=== PATIENT | male | born 1995 | race African-American/Black ===

== ENCOUNTER 2016-07-11 14:44 | Inpatient (IN) | payer OTHER ==
--- NOTE | ~2016-07-11 | HP ---
Unit #: [id number] #: [id number] Patient: LORI GLEASON [id number] [place] [address] [id number] I MR#: [id number] NAME: LORI GLEASON ROOM: 30 Age: 21 Sex: M Admission Date: 07/11/2016 : 1995 Attending Physician: Zain Iniguez M.D. Admitting Physician: Zain Iniguez M.D. Primary Care Physician: Primary Care Physician No HISTORY AND PHYSICAL HISTORY OF PRESENT ILLNESS Lori is a 21 year old, admitted to [address] [place] [address] with psychotic behavior. He reports auditory hallucinations. PAST MEDICAL HISTORY Nothing significant. PAST SURGICAL HISTORY Nothing reported. ALLERGIES No known drug allergies. SOCIAL HISTORY He smokes one half pack per day. He denies alcohol and illicit drug use. FAMILY HISTORY Medically noncontributory. REVIEW OF SYSTEMS He does not answer questions appropriately. There are no reports of nausea, vomiting, or diarrhea. He has had no cough or increased temperature. CURRENT MEDICATIONS 1. Seroquel XR 50 mg q.h.s. 2. Cogentin 1 mg b.i.d. 3. Zyprexa Zydis 10 mg q.8h p.r.n. 4. Desyrel 100 mg q.h.s. p.r.n. 5. Milk of magnesia p.r.n. 6. Maalox p.r.n. 7. Tylenol p.r.n. 8. Nicotine patch 14 mg daily 9. Catapres 0.1 mg daily 10. Risperdal 3 mg daily 11. Singulair 10 mg daily 12. Chlorhexidine 15 mL b.i.d. PHYSICAL EXAMINATION GENERAL: Alert, well-nourished, no apparent distress. VITAL SIGNS: Blood pressure 132/78, heart rate 100, respirations 16, and temperature 98.6. WEIGHT: 221 pounds. Unit #: [id number] #: [id number] Patient: LORI GLEASON HEIGHT: 5 feet 9 inches. SKIN: Warm and dry without rash or lesion. HEENT: Normocephalic. TMs not viewed. Oral and nasal passages clear. Conjunctivae clear. PERRLA. EOMs intact. NECK: Supple without lymphadenopathy or thyromegaly. HEART: Regular rate and rhythm without murmur. LUNGS: Clear. ABDOMEN: Soft, nontender. : Not done. EXTREMITIES: No evidence of cyanosis, clubbing or edema. Moves all without focal deficit. NEUROLOGICAL: Unable to complete extended exam. He does move all extremities without focal deficit. 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 IMPRESSION Psychiatric admission. RECOMMENDATIONS Psychiatric, per psychiatrist. MEDICAL I see no contraindications to participating in facility's activities. MEDICAL PROGNOSIS Good. MEDICAL CONDITION Stable. Dictated by... Susan Dumont P.A.-C. for Steph Lynn/sveta TD: 07/12/2016 13:10 JOB #: [id number] HISTORY AND PHYSICAL X Susan Dumont HISTORY AND PHYSICAL
--- NOTE | ~2016-07-11 | PA ---
Unit #: [id number] #: [id number] Patient: JIGAR GLEASON [id number] [facility] [address] [place] [address] [id number] I MR#: [id number] NAME: JIGAR GLEASON ROOM: 30 Age: 21 Sex: M Admission Date: 07/11/2016 : 1995 Date of Assessment: 07/12/2016 Attending Physician: Zain Iniguez M.D. Admitting Physician: Zain Iniguez M.D. Primary Care Physician: Primary Care Physician No PSYCHIATRIC ASSESSMENT IDENTIFYING INFORMATION The patient is a 21-year-old single white male admitted to the [address] [place] [address] with worsening auditory hallucinations. CHIEF COMPLAINT None given. INFORMANT(S) Patient, reliability is good. HISTORY OF PRESENT ILLNESS The patient is a 21-year-old single male admitted to the [address] [place] [address] after presenting to this facility yesterday accompanied by his foster parents. The patient reported increasing auditory hallucinations telling him to harm himself. The patient said that the voice had told him to kick a wall under his foot. The patient denied suicidal or homicidal ideation. The patient reported that he had been laughing inappropriately and punching the air. The patient states that he has been compliant with his medications. He does not recall who prescribes his medications but is currently on Seroquel XR and Risperdal as well as Cogentin. When seen today, the patient is noted to be quite blunted and evasive during interview, but is denying auditory or visual hallucinations or any psychotic symptoms and does not appear to be responding to internal stimuli. He is currently denying any suicidal ideation. PAST PSYCHIATRIC HISTORY The patient has a significant history of psychiatric illness but does not provide much in the way of useful history. He does report that he has been treated in the past at the [facility]. PAST MEDICAL HISTORY Significant for history of asthma and hypertension. MEDICATIONS Cogentin, chlorhexidine, clonidine, Singulair, Risperdal, Seroquel XL. ALLERGIES None. FAMILY HISTORY Noncontributory. Unit #: [id number] #: [id number] Patient: JIGAR GLEASON SOCIAL HISTORY The patient lives with foster parents. He reports no abuse of psychoactive substances. MENTAL STATUS EXAMINATION Examination at this time reveals the patient to be a well-developed well-nourished male appearing a stated age. He is in no apparent physical distress at the time of the examination. He is awake, alert, and oriented in all spheres. His mood is calm, his affect flat. Speech is impoverished, but generally well-coherent. There are no gross deficits in memory or cognition noted. Intelligence is judged to be in the average range based on fund of knowledge. The patient is generally cooperative during the interview. He is currently denying suicidal or homicidal ideation and denies any current psychotic symptoms. His judgment and insight appear to be reasonably intact. ASSETS AND LIABILITIES The patient's assets: Motivation for change. Liabilities: Lack of resources. DIAGNOSTIC IMPRESSION 1. Chronic paranoid schizophrenia. 2. Hypertension. 3. Environmental allergies. 4. Gastroesophageal reflux disease. TREATMENT PLAN The patient remains hospitalized for safety and stabilization. We will increase the patient's a.m. Risperdal dose from 3 to 4 mg daily. The patient will participate in appropriate order of milieu activities. ESTIMATED LENGTH OF STAY 5 to 7 days. Dictated by... Zain Iniguez M.D. MENDEZ/ailin TD: 07/12/2016 14:37 JOB #: [id number] PSYCHIATRIC ASSESSMENT X Zain Iniguez MD X PSYCHIATRIC ASSESSMENT
--- NOTE | ~2016-07-11 | DS ---
Unit #: [id number] #: [id number] Patient: JIGAR GLEASON [id number] [facility] [address] [place] [address] [id number] I MR#: [id number] NAME: JIGAR GLEASON ROOM: [facility] Age: 21 Sex: M Admission Date: 07/11/2016 : 1995 Discharge Date: 07/14/2016 Attending Physician: Zain Iniguez M.D. Primary Care Physician: Primary Care Physician No DISCHARGE SUMMARY REASON FOR ADMISSION The patient is a 21-year-old single male, admitted with worsening auditory hallucinations. HOSPITAL COURSE The patient was admitted to the [address] [place] [address] unit and continued on previously prescribed home medications. Risperdal was increased from 3 to 4 mg q.a.m. and other medications were continued. The patient showed rapid response to these medications and was pleasant and cooperative in his interactions with peers and staff. By 07/14/2016, he denied any auditory hallucinations of a command type, and requested discharge and it was so ordered. FINAL DIAGNOSES Chronic undifferentiated schizophrenia. DISPOSITION ON DISCHARGE The patient is discharged on the following medications: Risperdal 4 mg q.a.m. for psychosis, Seroquel XR 50 mg daily for psychosis, Cogentin 1 mg b.i.d. for extrapyramidal symptoms, clonidine 0.1 mg daily for hypertension, and Singulair 10 mg daily for environmental allergies. DISCHARGE INSTRUCTIONS No dietary or physical restrictions were placed upon the patient at the time of discharge. FOLLOWUP Followup will take place through the auspices of community health resources. PROGNOSIS The patient's prognosis is considered fair. Dictated by... Zain Iniguez M.D. CB/william TD: 07/15/2016 03:03 JOB #: [id number] Unit #: [id number] #: [id number] Patient: JIGAR GLEASON DISCHARGE SUMMARY X Zain Iniguez MD X DISCHARGE SUMMARY
--- NOTE | ~2016-07-11 | PN ---
Unit #: [id number] #: [id number] Patient: JIGAR GLEASON [id number] [facility] [address] [place] [address] [id number] I MR#: [id number] NAME: JIGAR GLEASON ROOM: 30 Age: 21 Sex: M Admission Date: 07/11/2016 : 1995 Attending Physician: Zain Iniguez M.D. Admitting Physician: Zain Iniguez M.D. Primary Care Physician: Primary Care Physician Anyi PINON PROGRESS NOTES DATE 07/13/2016 DISCUSSION The patient seems brighter today and is compliant with medications and saini routine. He reports reduction in auditory hallucinations. Should he sustain progress, discharge should take place in the next few days. Dictated by... Zain Iniguez M.D. CB/bzg TD: 07/14/2016 09:49 JOB #: [id number] [facility] PROGRESS NOTES X Zain Iniguez MD X PROGRESS NOTE
[~2016-07-11 14:44] MED LIST: LORTAB 5/500 TA1 TA1 PO; MOTRIN IB200 M1 PO
[2016-07-12 10:18] LABS: BASOPHIL% 0.4 % (0-2.5); EOSINOPHIL# 0.1 X10e3 (0-0.7); EOSINOPHIL% 2.7 % (0.0-7.0); HEMATOCRIT 47.9 % (38.0-50.0); HEMOGLOBIN 15.5 gm/dL (13.0-16.0); LYMPHOCYTE# 2.2 X10e3 (1.0-3.5); MEAN CELL VOLUME 83.7 FL (83-96); MEAN CORPUSCULAR HEMOGLOBIN 27.1 PG (28-34); MEAN CORPUSCULAR HGB CONC 32.4 g/dL (30-36); MONOCYTE# 0.5 X10e3 (0-1.0); MONOCYTE% 10.8 % (3.0-12.0); NEUTROPHIL# 1.7 X10e3 (1.5-7.1); NEUTROPHIL% 37.1 % (40-75); PLATELET COUNT 209 X10e3 (140-420); RED BLOOD COUNT 5.72 X10e (3.90-5.60); RED CELL DISTRIBUTION WIDTH 12.4 % (11.0-15.5); WHITE BLOOD COUNT 4.6 X10e3 (4.0-10.5)
[2016-07-12 10:26] LABS: DIFF IND NO
[2016-07-12 10:53] LABS: ALKALINE PHOSPHATASE 87 U/L (32-92); ALT (SGPT) 37 U/L (10-40); AST (SGOT) 23 U/L (10-42); BILIRUBIN,TOTAL 0.7 mg/dL (0.2-2.0); BLOOD UREA NITROGEN 12 mg/dL (9-23); CALCIUM SERUM 9.7 mg/dL (8.4-10.2); CARBON DIOXIDE 27 mmol/L (22-31); CHLORIDE 105 mmol/L (100-111); GLOM FILT RATE Estimated ABOVE60 mL/min (>60); GLUCOSE FASTING 98 mg/dL (70-110); POTASSIUM 4.9 mmol/L (3.5-5.1); SODIUM 140 mmol/L (135-145)
== END 2016-07-14 16:35 | disposition home or self-care (01) | DRG 885 ==
LOC: P1S 14:44
PROVIDERS: Specialist
DX: F20.5 Residual schizophrenia (principal); I10 Essential (primary) hypertension; F17.210 Nicotine dependence, cigarettes, uncomplicated; J45.909 Unspecified asthma, uncomplicated; K21.9 Gastro-esophageal reflux disease without esophagitis
CPT/HCPCS: 80053; 84439; 84443; 85025